=== PATIENT | male | born 1960 | race Caucasian/White ===

== ENCOUNTER 2019-01-17 16:26 | Inpatient (IN) | payer MEDICARE, MEDICAID ==
[2019-01-17 17:28] VITALS: BP 129/65
[2019-01-17] MEDS ORDERED: Magnesium Hydroxide (MOM) 30 mL UDC PO PRN (17:29)
[2019-01-17] MEDS ORDERED: Maalox 30 mL Cup PO PRN (17:29)
[2019-01-17] MEDS ORDERED: Albuterol/Ipratropium Neb 3 ML AERS HHN PRN (20:15)
--- NOTE | 2019-01-18 07:11 | Psychiatric Evaluation ---
DATE OF SERVICE: 01/18/2019 JUSTIFICATION FOR HOSPITALIZATION: Aggressive behaviors, poor self-care, concerns for grave disability. HISTORY OF PRESENT ILLNESS: A 58-year-old male, seems to have history of schizophrenia, not answering questions appropriately. Fully oriented, believing that he is going to go home and be cared for by his parents. He is not quite sure his parents are even alive. Mumbling to self, disrobes, acting very strange, disoriented, preoccupied, talking to people that are not there. Mood "I'm fine, I want to go home." PAST PSYCHIATRIC HISTORY: Admissions in the past, history of schizophrenia. Denies any suicide attempts. SOCIAL HISTORY: It is unclear where he was born. Not . He states he has "a bunch of kids." It is unclear where he lives. MEDICATIONS: Noted. MEDICAL HISTORY: Noted. MENTAL STATUS EXAMINATION: Unkempt. Fair eye contact. Speech within normal limits. Mood "fine." Affect flat. Thought processes are disorganized. No overt SI or HI. Seems to be psychotic, responding to self to internal stimuli, poor insight, poor judgment. PROVISIONAL DIAGNOSIS: Schizophrenia. MEDICAL: Please see full H and P. ESTIMATED LENGTH OF STAY: 9 to 12 days. ASSESSMENT: The patient unruly, agitated, concerns for safety of others. Concerns for his ability to care for self. PLAN: We will increase Risperdal. TREATMENT PLAN: Includes group as well as milieu therapy. CONDITIONS FOR DISCHARGE: Improved mood, improved affect. SAFE DISCHARGE PLAN: Better control of his mood symptoms, aggressive behaviors. [facility]# [id number]
[2019-01-18] MEDS: Multivitamin Tab PO SCH (08:32)
--- NOTE | 2019-01-18 22:26 | History and Physical ---
History of Present Illness - HPI Chief Complaint: Mental health disorder HPI: 58 male with underlying psych disorder who was admitted to [facility] for underlying psych illness. Patient was recently at [facility] diagnosed with leg cellulitis and was given IV antibiotics. Patient's cellulitis to be doing better. Vital Signs: Last Vital Signs Temp 97.9 F 01/18/19 20:00 Pulse 84 01/18/19 20:00 Resp 20 01/18/19 20:00 BP 142/75 01/18/19 20:00 Pulse Ox 97 01/18/19 20:00 Past Medical History Cardiovascular: Report: No Pertinent Hx Pulmonary: Report: COPD PROCESSOR GRAIN: Report: No Pertinent Hx GI: Report: No Pertinent Hx Psych: Report: Psychosis Musculoskeletal: Report: No Pertinent Hx Rheumatologic: Report: No pertinent Hx Infectious Disease: Report: Other Renal/: Report: No Pertinent Hx Endocrine: Report: No Pertinent Hx Dermatology: Report: No Pertinent Hx Social History Smoke: 1 pack per day Alcohol: Other Drugs: Other Lives: Alone - Allergies Allergies/Adverse Reactions: Allergies Allergy/AdvReac Type Severity Reaction Status Date / Time No Known Allergies Allergy Unverified 01/17/19 17:28 Review of Systems - Review of Systems Constitutional: Report: No Significant Eyes: Report: No Significant ENT: Report: No Significant Respiratory: Report: No Significant Cardiovascular: Report: No Significant Gastrointestinal: Report: No Significant Genitourinary: Report: No Significant Skin: Report: No Significant Neurological: Report: No Significant - Assessment Assessment: Left leg cellulitis COPD Nicotine dependancy Psych disorder - Plan Plan: Keflex for 5 more days Albuterol HHN prn Smoking cessation advised Psych management per psych
[2019-01-19] MEDS: Multivitamin Tab PO SCH (08:34)
--- NOTE | 2019-01-20 00:29 | Progress Notes ---
DATE: 01/18/2019 SUBJECTIVE: The patient in the hospital, aggressive behaviors, unruly, concerns for grave disability, slept for about 5 hours, still paranoid, paranoid of staff, guarded, mostly keeps to himself, withdrawn, wants to drink alcohol, smoke cigarettes, noted to be mumbling to self, responding to internal stimuli. ASSESSMENT: The patient remains symptomatic, ongoing concerns about underlying psychosis. PLAN: We will continue to monitor. I will be increasing his dosages of Risperdal today. JOB# [id number]
[2019-01-20] MEDS: Multivitamin Tab PO SCH (08:54)
--- NOTE | 2019-01-20 23:27 | Progress Notes ---
DATE: 01/20/2019 SUBJECTIVE: The patient is in the hospital, remains withdrawn, mostly keeps to self, mumbling to self, seems to be responding to internal stimuli. The patient has nowhere to go and quite concerns for grave disability for sleep, for appetite, mostly isolative. PLAN: We will continue to monitor ongoing concerns about his psychotic symptoms, his ability to really care for his basic needs, unable to step down at a lower level of care, we were trying to help with placement while we stabilize further. Continue antipsychotic medications. JOB# [id number]
[2019-01-21] MEDS: Multivitamin Tab PO SCH (09:52)
--- NOTE | 2019-01-21 23:36 | Progress Notes ---
DATE: 01/21/2019 SUBJECTIVE: The patient in the hospital, withdrawn, keeping to self. The patient seen to responding to internal stimuli nowhere to go. Concerns for grave disability. I felt withdrawn, very bizarre, urinating in objects in the hospital, pacing back and forth, mumbling to self. PLAN: We will continue to monitor ongoing concerns or really about his ability to function at a lower level of care. We will be increasing his dosing of Risperdal today. [facility]# [id number]
[2019-01-22] MEDS: Multivitamin Tab PO SCH (08:48)
--- NOTE | 2019-01-22 23:33 | Progress Notes ---
DATE: 01/22/2019 SUBJECTIVE: The patient is symptomatic, still bizarre, odd, ongoing concerns about his ability to really function at a lower level of care. Ongoing bizarre symptom, not safe for lower level of care. We will be titrating his dosage of medications today. Given the severity of his ongoing symptoms, he is not currently safe for discharge. JOB# [id number]
[2019-01-23] MEDS: Albuterol/Ipratropium Neb 3 ML AERS HHN PRN ×2 (08:42→19:46)
[2019-01-23] MEDS: Multivitamin Tab PO SCH (08:51)
--- NOTE | 2019-01-24 00:01 | Progress Notes ---
DATE: 01/23/2019 The patient coming into the hospital, very bizarre, making some nonsensical statements, states that he wants to live with his father, states his mood is "worse," ongoing bizarre symptoms, rambling, internally preoccupied, still psychotic. Fair sleep and appetite currently on dosing of Risperdal. We will continue to monitor, titrate dosing accordingly. [facility]# [id number]
[2019-01-24] MEDS: Multivitamin Tab PO SCH (08:22)
[2019-01-24] MEDS: Albuterol/Ipratropium Neb 3 ML AERS HHN PRN (22:41)
--- NOTE | 2019-01-25 01:31 | Progress Notes ---
DATE: 01/24/[address] Duong. Case was discussed with staff of the patient, reviewed records. This is a 58-year-old male who was admitted on 01/17/2019 because of aggressive behavior, poor self-care, gravely disabled. The patient is fully oriented, believing that he is going to go home and be cared for by his parents. He is not quite sure if his parents are even alive, mumbling to himself acting strange, disoriented, preoccupied, with history of prior admissions and history of schizophrenia. When I talked to him, he looked disheveled, disorganized, internally preoccupied, demanding, unable to make safe plan for self-care, responding to internal stimuli. He is on Risperdal 3 mg daily, 2 mg at bedtime with no side effects, no sedation or nausea, no extrapyramidal symptoms. We will continue to work with the patient in group therapy, milieu therapy, and adjust the medications as needed. JOB# [id number]
[2019-01-25] MEDS: Albuterol/Ipratropium Neb 3 ML AERS HHN PRN (08:47)
[2019-01-25] MEDS: Multivitamin Tab PO SCH (09:10)
[2019-01-25] MEDS: Hydrocodone/APAP 5mg/325mg Tab PO PRN (09:10)
--- NOTE | 2019-01-26 03:51 | Progress Notes ---
DATE: 01/25/2019 The patient was seen and evaluated. The patient's chart reviewed. Dr. Elkins covering for Dr. Duong. IDENTIFYING DATA: A 58-year-old male brought in here with history of schizophrenia, disorganized and responding actively to internal stimuli. As early as yesterday, the patient has been noted to make nonsensical statements, bizarre statements. Today on [id number] evaluation, the patient is responding to internal stimuli. He denies any side effects to medications. On examination, internal thought process consistent with responding to internal stimuli, thought blocking, delusional. Medication reconciliation reviewed. Currently on Risperdal 2 mg p.o. at bedtime, Risperdal 2 mg in the morning. ASSESSMENT AND PLAN: History of severe schizophrenia who will continue to demonstrate symptoms of psychosis. Continue with the recent increase of the antipsychotic Risperdal to target the patient's active hallucination. JOB# [id number]
[2019-01-26] MEDS: Multivitamin Tab PO SCH (08:43)
[2019-01-26] MEDS: Albuterol/Ipratropium Neb 3 ML AERS HHN PRN ×2 (08:57→22:13)
--- NOTE | 2019-01-26 23:54 | Progress Notes ---
DATE: SUBJECTIVE: The patient was seen and evaluated. The patient was interviewed. ____ evaluation, the patient denies any side effects to medication. He continues to derail in conversation. He ____ redirection ____ internal stimuli. On examination, delusional, thought blocking, internal stimuli. ASSESSMENT AND PLAN: History of schizophrenia, recent addition and increase of Risperdal has been tolerated. We will continue to monitor and evaluate the current medications. JOB# [id number]
[2019-01-27] MEDS: Albuterol/Ipratropium Neb 3 ML AERS HHN PRN ×2 (03:11→21:55)
[2019-01-27] MEDS: Multivitamin Tab PO SCH (08:26)
--- NOTE | 2019-01-27 21:15 | Progress Notes ---
DATE: 01/27/2019 SUBJECTIVE: A 58-year-old male, currently in the hospital, psychotic, responding to internal stimuli, thought blocking, delusions, still not making any sense, paranoid, confused, stating he plans to live with his father, but there is no evidence of this, ongoing safety concerns, concerns about his ability to really function at a lower level of care given the extent and severity of his ongoing psychotic symptoms. PLAN: We will continue to monitor and I will titrate and adjust medications, titrate Risperdal slowly. [facility]# [id number]
[2019-01-28] MEDS: Multivitamin Tab PO SCH (08:14)
[2019-01-28] MEDS: Albuterol/Ipratropium Neb 3 ML AERS HHN PRN ×2 (14:14→19:06)
--- NOTE | 2019-01-29 02:06 | Progress Notes ---
DATE: 01/28/2019 SUBJECTIVE: The patient in the hospital psychotic, responding to internal stimuli, nonsensical responses, confused, disoriented, somewhat calmer, not as aggressive, still paranoid, mumbling to self, responding to internal stimuli. Vitals were noted as well. Medications were noted. ASSESSMENT: The patient with ongoing psychotic symptoms. PLAN: We will continue to monitor. I will be increasing his dosing of Risperdal today. [facility]# [id number]
[2019-01-29] MEDS: Hydrocodone/APAP 5mg/325mg Tab PO PRN ×2 (03:10→09:40)
[2019-01-29] MEDS: Multivitamin Tab PO SCH (08:37)
[2019-01-29] MEDS: Albuterol/Ipratropium Neb 3 ML AERS HHN PRN (19:22)
--- NOTE | 2019-01-29 20:52 | Progress Notes ---
DATE: 01/29/2019 SUBJECTIVE: The patient unkempt, confused, talking about "balls of soap." Not making any sense, unruly, bizarre, preoccupied with thoughts, talking, laughing to self, responding to internal stimuli. He has been generally calm, no behavioral outbursts, fair sleep, fair appetite. PLAN: We will continue to monitor. The patient remains symptomatic, psychotic. Given recent dose increase of Risperdal, we will continue at current dosing. We will titrate conservatively. [facility]# [id number]
[2019-01-30] MEDS: Albuterol/Ipratropium Neb 3 ML AERS HHN PRN ×5 (05:12→23:16)
[2019-01-30] MEDS: Hydrocodone/APAP 5mg/325mg Tab PO PRN (05:45)
[2019-01-30] MEDS: Multivitamin Tab PO SCH (08:30)
--- NOTE | 2019-01-30 21:45 | Progress Notes ---
DATE: 01/30/2019 SUBJECTIVE: The patient is currently in the hospital, disorganized, disoriented, yelling, still not stable, still seems to be mumbling to self. We are trying to help the patient with a placement. He has got nowhere to go. He is too disorganized to really care for himself, still confused, nonsensical, recent dose increase of Risperdal. We will continue to monitor. JOB# [id number]
[2019-01-31] MEDS: Albuterol/Ipratropium Neb 3 ML AERS HHN PRN ×4 (04:52→22:09)
[2019-01-31] MEDS: Multivitamin Tab PO SCH (08:40)
--- NOTE | 2019-01-31 22:46 | Progress Notes ---
DATE: 01/31/2019 The patient is rambling nonsensical, nearly hanging of the bad, stating "this is bullshit, I am going to leave." Nowhere to go. The patient cannot take care of himself, too disorganized, bizarre, psychotic, rambling nonsensically and servicer coin machines awakenings. Fair appetite. Medications were noted. Recent dose increase, seems to be tolerating well. We will continue to monitor. The patient is gravely disabled. No confirm placements. JOB# [id number]
[2019-02-01] MEDS: Albuterol/Ipratropium Neb 3 ML AERS HHN PRN ×5 (06:40→22:42)
[2019-02-01] MEDS: Multivitamin Tab PO SCH (09:30)
[2019-02-02] MEDS: Albuterol/Ipratropium Neb 3 ML AERS HHN PRN ×4 (07:33→22:25)
[2019-02-02] MEDS: Multivitamin Tab PO SCH (08:58)
--- NOTE | 2019-02-02 09:41 | Progress Notes ---
DATE: 02/01/2019 PHYSICIAN: Omar Baldwin DO Covering for Dr. Duong. SUBJECTIVE: The patient was interviewed. The case was discussed with staff, and the chart was reviewed. Per the staff, the patient has been wandering. He has been stealing people's items and foods. The patient also has been focused on smoking. The patient was interviewed at bedside. The patient is alert and oriented x 4. He is able to tell me his name, the date, also where he is located and that he is in the mental health unit. The patient believes that he will be going home after discharge from the hospital, but per the records unclear if the patient's family and home are even exist. The patient has significant ongoing thought disorganization. The patient continues to be preoccupied during the interview. He seems responding to internal stimuli. He is mumbling to himself. He in addition appears to be paranoid of others including this provider. He denies any side effects to the medications. MENTAL STATUS EXAMINATION: The patient is sitting comfortably in his hospital bed. He maintains limited eye contact. His speech is monotonous. His mood and affect are blunted. His thought processes somewhat loose and disorganized. He denies any suicidal or homicidal thoughts, but he is internally preoccupied, responding to internal stimuli and also paranoid. He is alert and oriented x 4. His insight, judgment and impulse control remain poor. ASSESSMENT: This is a 58-year-old male admitted to [facility] with history of schizophrenia. The patient at this time continues with significant thought disorganization, hallucinations and paranoia. He appears to be responding well to Risperdal with no side effects. In addition, he has no plan for self-care at this time. PLAN: I will continue the patient's acute hospitalization. We will continue medications as prescribed and observe for any further improvement. We will also encourage the patient to verbalize his needs and to participate in group and milieu therapy. JOB# [id number]
[2019-02-02] MEDS: Hydrocodone/APAP 5mg/325mg Tab PO PRN (15:06)
--- NOTE | 2019-02-03 02:04 | Progress Notes ---
DATE: 02/02/2019 NEPHROLOGY PROGRESS COVERING FOR: Dr. Duong. SUBJECTIVE: The patient was interviewed. The case was discussed with staff and the chart was reviewed. Per the staff, the patient has been wandering and continues to steal other people's items and food. The patient also was agitated earlier in the day, attempting to burn pieces of paper. The patient was interviewed in the day room. The patient is grossly disorganized. He appears to be impulsive with significant mood lability. The patient in addition has no plan for care at this time. The patient is unable to cooperate with symptom screening. He appears to be responding heavily to internal stimuli, mumbling to himself, laughing to himself, also has a very poor cooperation and poor concentration and unable to engage with the interview. The patient does appear to be paranoid of this provider and has poor cooperation overall. He does deny any side effects to his medications. MENTAL STATUS EXAMINATION: The patient is sitting in a hospital chair in the day room. The patient maintains limited eye contact. His speech is mumbled. His mood and affect appear to be labile. His thought process is disorganized. He superficially denies any suicidal or homicidal thoughts, but he is seen attempting to burn pieces of paper. He also is internally preoccupied, responding to internal stimuli, also quite paranoid of others. He is alert and oriented x 4. His insight, judgment and impulse control remain very poor. ASSESSMENT: A 58-year-old male admitted to [facility] with a history of schizophrenia. The patient at this time continues with significant thought disorganization responding heavily to his hallucinations, also has ongoing mood lability and impulsive behavior and paranoia. He also appears to be improving somewhat with the Risperdal with no side effects. The patient at this time has no plan for self-care. PLAN: We will continue the patient's acute hospitalization. I will also continue the medication as prescribed and continue to observe for any improvements. We will also encourage the patient to participate in group and milieu therapy. JOB# [id number]
[2019-02-03] MEDS: Albuterol/Ipratropium Neb 3 ML AERS HHN PRN (02:45)
[2019-02-03] MEDS ORDERED: Albuterol/Ipratropium Neb 3 ML AERS HHN PRN (04:21)
[2019-02-03] MEDS: Albuterol/Ipratropium Neb 3 ML AERS HHN SCH ×5 (06:48→22:54)
[2019-02-03] MEDS: Multivitamin Tab PO SCH (08:09)
[2019-02-03] MEDS: Hydrocodone/APAP 5mg/325mg Tab PO PRN (20:04)
[2019-02-04] MEDS: Albuterol/Ipratropium Neb 3 ML AERS HHN SCH ×6 (03:00→23:14)
[2019-02-04] MEDS: Multivitamin Tab PO SCH (08:24)
--- NOTE | 2019-02-04 11:04 | Progress Notes ---
DATE: 02/03/2019 SUBJECTIVE: The patient in the hospital, stealing things from others, is agitated, not making any sense, wearing towels on his head, mumbling to self, unable to really be cared for at a lower level of care given his ongoing behavior, psychotic symptoms. He could be approaching his baseline, currently on dosing of Risperdal, ongoing concerns about poor impulse control. We will also consider dosing of Depakote. It is unclear if the patient can really tend to his basic needs. We are also trying to actively help him with the placement. PLAN: We will continue to monitor and initiate the low dose Depakote to see if this will adjunct his current regimen. [facility]# [id number]
--- NOTE | 2019-02-04 21:19 | Progress Notes ---
DATE: 02/04/2019 SUBJECTIVE: The patient mostly fixated on smoking. Offers very poor impulse control, mumbling something. I am not sure how much better he is on the current medication regimen; still screaming, yelling, heavily disoriented, possibly just has been a schizophrenic untreated for decades, now on the [place] stage. Rummages in the chart and asks for cigarettes, food items. Unable to really care for himself, still trying to find him a place to go. We will continue to monitor, monitor for any extrapyramidal side effects, consider lowering the dose of Risperdal. JOB# [id number]
[2019-02-05] MEDS: Albuterol/Ipratropium Neb 3 ML AERS HHN SCH ×6 (03:05→22:09)
[2019-02-05] MEDS: Multivitamin Tab PO SCH (09:11)
--- NOTE | 2019-02-06 02:24 | Progress Notes ---
DATE: 02/05/2019 The patient pretty disoriented, less drooling, notes he has been on Artane in the past. Mostly keeping to himself, mumbling to himself, ongoing psychotic symptoms, concerns for his ability for self-care. We are trying to send him to a safe place given that he really cannot care for himself, especially for appetite. We will continue to monitor ongoing disorganized thought processes. Continue dosing of Risperdal. [facility]# [id number]
[2019-02-06] MEDS: Albuterol/Ipratropium Neb 3 ML AERS HHN SCH ×6 (02:57→22:39)
[2019-02-06] MEDS: Multivitamin Tab PO SCH (09:09)
--- NOTE | 2019-02-06 16:49 | Progress Notes ---
DATE: 02/06/2019 Case was discussed with staff of the patient, reviewed records. Covering for Dr. Duong. This is a well-known patient, I have seen him before covering for Dr. Duong. The patient states himself, he continues to be unpredictable, impulsive and unable to take care of himself. He continues to be disorganized. He is compliant with the medication with no side effects, no sedation, no nausea, no extrapyramidal symptoms. His Risperdal was increased yesterday to 2 mg twice a day and he is also on Depakote 250 mg twice a day. He is also I will continue outpatient group therapy, milieu therapy, adjust medication as needed. [facility]# [id number]
[2019-02-07] MEDS: Albuterol/Ipratropium Neb 3 ML AERS HHN SCH ×6 (02:43→23:06)
[2019-02-07] MEDS: Multivitamin Tab PO SCH (09:08)
--- NOTE | 2019-02-07 22:58 | Progress Notes ---
DATE: 02/07/2019 Case was discussed with staff of the patient, reviewed records. Covering for Dr. Duong. The patient continues to isolate himself, disorganized, internally preoccupied, unable to make safe plan for self-care or participate in a meaningful conversation. No side effects with the medication, no sedation, no nausea, no extrapyramidal symptoms. We will continue outpatient group therapy, milieu therapy, adjust the medication as needed. JOB# [id number]
[2019-02-08] MEDS: Albuterol/Ipratropium Neb 3 ML AERS HHN SCH ×6 (02:33→23:25)
[2019-02-08] MEDS: Multivitamin Tab PO SCH (08:17)
[2019-02-08] MEDS: Hydrocodone/APAP 5mg/325mg Tab PO PRN (14:50)
--- NOTE | 2019-02-08 16:07 | Progress Notes ---
DATE: 02/08/2019 SUBJECTIVE: The patient in the hospital, isolative, disorganized, mumbling to self, asking when he is going to go home, stating he is going to go home, he has a home to go to. We are currently working on placement. The patient is still disoriented and disorganized and not really in touch with reality. The patient is very irritable, upset, easily agitated, mumbling to self. PLAN: We will continue to monitor. No EPS noted on exam. Less agitated, less aggressive. We will increase nighttime dosing of Risperdal. JOB# [id number]
[2019-02-09] MEDS: Albuterol/Ipratropium Neb 3 ML AERS HHN SCH ×6 (03:41→21:59)
[2019-02-09] MEDS: Multivitamin Tab PO SCH (08:41)
--- NOTE | 2019-02-09 17:23 | Progress Notes ---
DATE: 02/09/2019 SUBJECTIVE: The patient in the hospital. Poorly oriented, forgetful, isolative, disorganized, mumbling to self, ongoing psychotic symptoms. No EPS noted. Tolerant of recent dose increase of Risperdal. Ongoing safety concerns given his psychotic symptoms, poor sleep or appetite. Nurses keeping a close eye on him. The patient remains angry, cursing, trying to hit and kick staff, needing redirection over the past 24 hours. JOB# [id number]
[2019-02-09] MEDS: Hydrocodone/APAP 5mg/325mg Tab PO PRN (21:16)
[2019-02-10] MEDS: Albuterol/Ipratropium Neb 3 ML AERS HHN SCH ×4 (02:23→14:26)
[2019-02-10] MEDS: Multivitamin Tab PO SCH (08:09)
--- NOTE | 2019-02-10 22:33 | Discharge Summary ---
DATE OF DISCHARGE: 02/10/2019 HISTORY OF PRESENT ILLNESS: A 58-year-old male with history of schizophrenia, mumbling to self, ____, very strange, preoccupied, psychotic, talking to people that were not there, aggressive, poor self-care. PAST PSYCHIATRIC HISTORY: Schizophrenia. SOCIAL HISTORY: Unclear not the best historian, seems homeless. MEDICATIONS: Noted. MENTAL STATUS EXAMINATION: Please see full psych eval for details. PROVISIONAL DIAGNOSIS: Schizophrenia. MEDICAL HISTORY: Please see full H and P. HOSPITAL COURSE: After initial assessment, the patient was started back on medications, Depakote, Risperdal. Risperdal was titrated. The patient experienced some extrapyramidal side effects, drooling, for example. Risperdal was lowered, adjusted Depakote for his mood and poor impulse control. Over the course of treatment, mood improved, affect improved, more engaged, better orientation, better reality testing. No EPS. No psychotic symptoms, no longer aggressive. Toward the latter end of treatment, he was essentially asymptomatic redirectable and was discharged once placement was confirmed at a senior care. CONDITION ON DISCHARGE: Improved with ADLs, more tolerant of treatment. Mood clinically fine. Affect engaged and linear. Thought processes, no SI, no HI, no psychotic symptoms. No delusions. Better insight, better impulse control. DISCHARGE DIAGNOSIS: Schizophrenia. PROGNOSIS: The patient follows up with outpatient mental health services and remains compliant with treatment. Prognosis will improve, otherwise guarded. MEDICAL HISTORY: Noted. Reviewed. [facility]# [id number]
== END 2019-02-10 17:15 | DRG 885 ==
LOC: GERO 16:26
PROVIDERS: ADMIT Psychiatry & Neurology Psychiatry; ATTEND Psychiatry & Neurology Psychiatry
DX: F20.9 Schizophrenia, unspecified (principal); L03.116 Cellulitis of left lower limb; J44.9 Chronic obstructive pulmonary disease, unspecified; F17.210 Nicotine dependence, cigarettes, uncomplicated; Z59.0 Homelessness
CPT/HCPCS: 82948-90; 83036-90; 90899; 94640; 94760; G0410; Q0162; Z7610